=== PATIENT | female | born 1995 | race Caucasian/White ===

== ENCOUNTER 2020-09-08 11:25 | Outpatient (REF) | payer OTHER, SELFPAY ==
[2020-09-08 14:46] LABS: HCG Quantitative < 2 mIU/mL
== END 2020-09-08 11:26 | disposition home or self-care (01) ==
LOC: HO.LAB 11:25
PROVIDERS: Visit Provider Advanced Practice Midwife
DX: O20.0 Threatened abortion (principal)
CPT/HCPCS: 84702; 86850; 86900; 86901

== ENCOUNTER → 2020-09-14 14:45 | Outpatient (BNVA) | payer OTHER, SELFPAY | PROVIDERS: Visit Provider Advanced Practice Midwife | DX: Z76.89 Persons encountering health services in other specified circumstances (principal) ==

== ENCOUNTER 2021-06-13 14:22 | Outpatient (REF) | payer OTHER, SELFPAY ==
[2021-06-13 15:47] LABS: Hematocrit 43.4 % (37-47); Hemoglobin 14.6 g/dl (12.0-16.0); Mean Corpuscular HGB Conc 33.6 g/dl (31.0-35.0); Mean Corpuscular Hemoglobin 30.7 pg (27.0-33.0); Mean Corpuscular Volume 91.4 fL (80-98); Mean Platelet Volume 10.4 fL (9.4-12.3); Platelet Count 223 X10*3/uL (160-400); Red Blood Count 4.75 X10*6/uL (4.20-5.50); Red Cell Distribution Width 11.6 % (11.0-16.0); White Blood Count 4.9 X10*3/uL (4.8-10.8)
[2021-06-13 16:36] LABS: HCG Quantitative < 2 mIU/mL; TSH reflex Free T4 1.32 uIU/mL (0.32-4.0)
[2021-06-14 00:58] LABS: CT PCR NOT DETECTED (Not Detect.); NG PCR NOT DETECTED (Not Detect.)
[2021-06-14 07:57] LABS: Lutenizing Hormone 5.7 mIU/mL; Prolactin 10.3 ng/mL
== END 2021-06-13 14:23 | disposition home or self-care (01) ==
LOC: HO.LAB 14:22
PROVIDERS: PCP Internal Medicine; Referring Provider Internal Medicine; Visit Provider Obstetrics & Gynecology
DX: Z01.411 Encounter for gynecological examination (general) (routine) with abnormal findings (principal); Z11.3 Encounter for screening for infections with a predominantly sexual mode of transmission; N92.6 Irregular menstruation, unspecified; N93.9 Abnormal uterine and vaginal bleeding, unspecified
CPT/HCPCS: 36415; 83001; 83002; 84146; 84443; 84702; 85027; 87491; 87591

== ENCOUNTER 2021-06-27 15:33 | Outpatient (REF) | payer OTHER, SELFPAY ==
--- NOTE | ~2021-06-27 | US_ITS ---
EXAMINATION: US PELVIS AND TRANSVAGINAL CLINICAL INFORMATION: Abnormal bleeding. LMP 05/27/2021. COMPARISON: None. TECHNIQUE: Ultrasound of the pelvis is performed using both transabdominal and transvaginal transducers along with Doppler. Transvaginal imaging is performed due to inadequate visualization transabdominally. FINDINGS: Uterus: The uterus is anteverted and measures 9.5 x 5.6 x 5.8 cm. Nabothian cysts within the cervix. The double wall endometrial thickness is 1.8 mm. The uterus is smooth in contour and has normal myometrial echogenicity. No visible fibroid. Adnexa: Both ovaries are visualized. There is normal color flow to the adnexa. There is no ovarian torsion. There is no pelvic ascites or fluid collection. There are bilateral ovarian follicles. Right ovary measures 2.7 x 1.6 x 1.4 cm, for a volume of 3.2 mL. Left ovary measures 2.6 x 1.9 x 2.1 cm, for a volume of 5.4 mm. US/US pelvic and transvaginal IMPRESSION: Sonographically unremarkable uterus and endometrium. Sonographically unremarkable right and left ovary with bilateral ovarian follicles.
== END 2021-06-27 15:34 | disposition home or self-care (01) ==
LOC: HO.US 15:33
PROVIDERS: Visit Provider Obstetrics & Gynecology
DX: N93.9 Abnormal uterine and vaginal bleeding, unspecified (principal); N92.6 Irregular menstruation, unspecified
CPT/HCPCS: 76830; 76856

== ENCOUNTER → 2021-07-11 14:09 | Outpatient (BNVA) | payer OTHER, SELFPAY | PROVIDERS: Visit Provider Advanced Practice Midwife ==

== ENCOUNTER 2023-10-16 07:38 | Outpatient (AMB) | payer OTHER, SELFPAY ==
--- NOTE | 2023-10-16 07:41 | A.OFFVIS_ITS ---
Intake Vital Signs 10/16/23 07:43 Height 5 ft 3 in Weight 167 lb BMI 29.6 BP 120/80 Intake Visit Reasons: Annual Intake Note: No concerns Server Administrator Required: No Information Interpreted: non-clinical & clinical Advanced Solutions Architect: Advanced Solutions Architect Present (Rena HOLLEY) Accompanied by: Self / Same As Patient Allergies No Known Allergies Allergy (Verified 10/16/23 07:44) Is last menstrual period known: Yes Last menstrual period: 09/17/23 HPI HPI Comments History of Present Illness Details Presenting for annual exam. No complaints. Last Pap was negative in 05/01 [facility] Medical History Hodgkin lymphoma Family History Maternal Grandmother No problems noted. 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 Sexual orientation: Straight/Heterosexual Gender identity: Female Female Reproductive History Menstrual Age of Menarche: 11 Date of last menstrual period: 09/17/23 control method: none Total pregnancies: 1 Full term: 1 Number of Living Children: 1 Date of last pap smear: 05/28/20 Review of Systems Const All systems reviewed & are unremarkable except as noted in HPI and below Card Reports as per HPI Resp Reports as per HPI GI Reports as per HPI and Reports no additional complaints Reports as per HPI Physical Exam Vital Signs: BMI result Body Mass Index 29.6 Const General: cooperative, healthy appearing and comfortable Chest Chest palpation & inspection: normal inspection of the chest and normal palpa tion of entire chest wall Breast/axilla inspection: normal inspection of the breasts and normal inspection of the axillae Breast/axilla palpation: normal palpation of the breasts, normal palpation of the axillae and no axillary lymphadenopathy Resp Effort & Inspection: normal respiratory effort Auscultation: clear to auscultation bilaterally Percussion: percussion normal Cardio Palpation: normal PMI Rate: regular rate Rhythm: regular rhythm Heart sounds: no murmurs and no rubs Peripheral pulses: Peripheral pulses 2+ throughout GI Inspection: Yes normal to inspection Palpation (GI): Soft to palpation, nontender, no guarding, not rigid and No hepatosplenomegaly present Percussion: Yes normal to percussion Auscultation: normal bowel sounds Rectal Exam - Female: deferred General: Yes bladder normal to palpation External Female Exam: No lesion Speculum Exam - Vagina: normal appearance of the vagina, normal palpation, normal vaginal discharge and not erythematous Speculum Exam - Cervix: normal appearance of the cervix and normal palpation Bimanual exam- vagina & uterus: normal bimanual exam, normal palpation, uterine size normal, bladder normal to palpation, consistency normal and normal palpation Bimanual Exam- Adnexa, other: normal adnexae, no masses and no tenderness Assessment & Plan Assessment & Plan (1) Well woman exam: Code(s): Z01.419 - Encounter for gynecological examination (general) (routine) without abnormal findings Plan: Cotesting done. Counseled the patient about the recommended dietary allowance of 1000 mg of Calcium & 600 IU of vitamin D. The patient was instructed to perform monthly self-breast exams and to schedule an annual exam in a year; All questions answered and the patient verbalized understanding. Instructed the patient to schedule annual exam in a year Coding Level of Care Code Est Pt Prev Care 18-39y(24499) Diagnoses Well woman exam Z01.419
[2023-10-16 07:43] VITALS: BP 120/80; BMI 29.6
== END 2023-10-16 07:56 | disposition home or self-care (01) ==
LOC: HO.HWS 07:38
PROVIDERS: Visit Provider Obstetrics & Gynecology
DX: Z01.419 Encounter for gynecological examination (general) (routine) without abnormal findings (principal)
CPT/HCPCS: 99395

== ENCOUNTER 2023-10-16 07:38 | Outpatient (REF) | payer OTHER, SELFPAY ==
[2023-10-20 04:33] LABS: HPV mRNA E6/E7 rflx Not Detected (Not Detected)
== END 2023-10-16 07:39 | disposition home or self-care (01) ==
LOC: HO.LNP 07:38
PROVIDERS: Visit Provider Obstetrics & Gynecology
DX: Z01.419 Encounter for gynecological examination (general) (routine) without abnormal findings (principal); Z11.51 Encounter for screening for human papillomavirus (HPV)
CPT/HCPCS: 87624; 88142

== ENCOUNTER 2025-01-24 16:58 | Emergency (ER) | payer BC, SELFPAY ==
[2025-01-24 17:14] VITALS: BP 129/75; PULSE 73; RESP 18; TEMP 36.3; O2SAT 100; BMI 28.3
--- NOTE | 2025-01-24 17:16 | ED.GENADULT ---
HPI - General Adult General Chief complaint: Wound/Laceration Stated complaint: laceration to r middle finger knuckle Time Seen by Provider: 01/24/25 17:50 Source: patient and RN notes reviewed Mode of arrival: ambulatory Limitations: no limitations History of Present Illness ED Provider: Rebekah Carias PA-C HPI narrative: This is a 29-year-old female who presents emergency department with complaints of laceration to right hand after trying to put together a grill with her friend. This injury occurred today. Unsure when her last tetanus shot was. No numbness, tingling, or weakness. She is right-hand dominant. No other complaints or concerns at this time. MD complaint: Right hand laceration Onset (ago): hour(s) Location: upper extremity Radiation: non-radiation Severity: moderate Quality: aching Pain Consistency: constant Relieving factors: none Exacerbating factors: none Associated symptoms: denies other symptoms Treatments prior to arrival: none Related Data Home Medications ?Medication ?Instructions ?Recorded ?Confirmed No Known Home Meds 10/16/23 10/16/23 Allergies Allergy/AdvReac Type Severity Reaction Status Date / Time No Known Allergies Allergy Verified 01/24/25 17:15 Review of Systems Review of Systems: Yes all other systems are reviewed and are negative [facility], [facility] Past Medical History Medical History Hodgkin lymphoma Family History Family History Maternal Grandmother No problems noted. 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 No acute distress. HEENT: Normal inspection CVS: Normal heart rate and rhythm. Pulses normal. Respiratory: No respiratory distress Skin: right hand, dorsal aspect just distal to the distal MCP, there is a 2 cm partial-thickness laceration, v-shaped, no active bleeding or discharge. Full ROM of the digit. capillary refill less than 2 seconds. Extremities: Full ROM of the digit Neuro: Oriented X 3. No motor deficit. No sensory deficit. Course Course Course Narrative: RME performed by Alona Alcantara PA-C. Patient is a 29 year old assigned female at presenting to the emergency department with a right hand laceration. Patient states she got a right hand laceration while attempting to put together a brand new grill. Detailed physical exam and review of systems are deferred to the primary health care nurse. Patient placed back in the waiting room pending room availability. Medications Administered Discontinued Medications Generic Name Dose Route Start Last Admin Trade Name Freq PRN Reason Stop Dose Admin Bacitracin 1 appl 01/24/25 18:41 01/24/25 18:44 Bacitracin Oint 0.9 Gm Packet TOPICAL 01/24/25 18:42 1 appl ONCE ONE Administration Protocol Diphtheria/Tetanus/Acell Pertussis 0.5 ml 01/24/25 17:16 01/24/25 18:31 Diphth,Pertus(Acell),Tet Adult 0.5 Ml Syringe IM 01/24/25 17:17 0.5 ml .ONCE ONE Administration Lidocaine HCl 10 ml 01/24/25 17:52 01/24/25 17:58 Lidocaine Hcl 1 % Mpf 5 Ml Vial SUBCUT 01/24/25 17:53 10 ml ONCE ONE Administration Procedures Laceration Laceration 1: Side (If applicable): right Size (cm): 2 Description: linear Depth: simple, single layer Local Anesthetic: lidocaine 1% Amount of anesthesia used (mL): 3 Pre-repair: wound explored, irrigated extensively and deep structures intact Skin layer closed with: nylon Size (cm): 5-0 Number of sutures: 4 Technique: simple, interrupted Medical Decision Making Medical Decision Making MDM Narrative: This is a 29-year-old female who presents emergency department with concerns for laceration to right middle finger. On arrival, vital signs within normal limits. patient has a partial-thickness laceration noted just distal to the MCP of the 3rd digit on the right hand. Requiring suture repair. Please see procedure note for detail. updated tetanus shot in the department. Given strict return precautions as well as wound care instructions. She understands agrees with plan. Patient stable for discharge Differential Diagnosis Differential Diagnoses: The differential diagnosis associated with the presentation includes laceration, contusion, foreign body, puncture wound Discharge Plan Discharge Clinical Impression: Laceration Patient Disposition: Home, Self-Care Instructions: Care For Your Stitches (ED) Additional Instructions: You were seen in the emergency department due to a laceration to your right middle finger. Please keep wound clean and dry. Please have sutures removed in 7-10 days. You may return here or follow-up with the primary care physician or urgent care. Do not submerge wound. Do not pick at wound. We updated your tetanus shot in the department today. Please take ibuprofen and or Tylenol as needed for pain and symptoms. Watch for any signs of infection including but not limited to increased redness, swelling, fevers or chills. If any of these occur, please seek emergent care. Prescriptions: No Action No Known Home Meds Interventions: ED Discharge Assessment Last Done: 01/24/25 19:07 Discharge Date/Time: 01/24/25 19:07 Print Language: Barbadian
[2025-01-24] MEDS: Lidocaine HCl 1 % MPF 5 ML VIAL 10 ML SUBCUT (17:58)
[2025-01-24] MEDS: Diphth,Pertus(ACell),Tet Adult 0.5 ML SYRINGE IM (18:31)
[2025-01-24] MEDS: Bacitracin Oint 0.9 GM PACKET 1 APPL TOPICAL (18:44)
[2025-01-24 18:53] VITALS: BP 128/76; PULSE 72; RESP 18; TEMP 36.5; O2SAT 98
[2025-01-24 19:07] VITALS: BP 128/76; PULSE 72; RESP 18; TEMP 36.5; O2SAT 98
== END 2025-01-24 19:07 | disposition home or self-care (01) ==
PROVIDERS: Emergency Provider Emergency Medicine
DX: S61.212A Laceration without foreign body of right middle finger without damage to nail, initial encounter (principal); W26.8XXA Contact with other sharp object(s), not elsewhere classified, initial encounter; Y93.89 Activity, other specified; Y92.9 Unspecified place or not applicable; Y99.9 Unspecified external cause status; Z23 Encounter for immunization
CPT/HCPCS: 12001; 90471; 90715; 99284; J2003

== ENCOUNTER 2025-11-02 08:44 | Outpatient (REF) | payer BC, SELFPAY ==
[2025-11-02 23:18] LABS: CT PCR NOT DETECTED (Not Detect.); NG PCR NOT DETECTED (Not Detect.)
== END 2025-11-02 08:45 | disposition home or self-care (01) ==
LOC: HO.LNP 08:44
PROVIDERS: Visit Provider Obstetrics & Gynecology
DX: Z01.419 Encounter for gynecological examination (general) (routine) without abnormal findings (principal); N93.0 Postcoital and contact bleeding; Z20.2 Contact with and (suspected) exposure to infections with a predominantly sexual mode of transmission
CPT/HCPCS: 87491; 87591; 87626; 88175

== ENCOUNTER 2025-11-02 08:44 | Outpatient (AMB) | payer BC, SELFPAY ==
[2025-11-02 08:57] VITALS: BP 110/80; BMI 29.2
--- NOTE | 2025-11-02 08:57 | A.OFFVIS_ITS ---
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 Complaining of postcoital bleeding over the last few months no associated symptoms Last Pap/HPV was ascus HPV negative in 11/03 [facility] Medical History Hodgkin lymphoma Family History Maternal Grandmother No problems noted. 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 [employer] Sexual orientation: Straight/Heterosexual Gender identity: Female Female Reproductive History Menstrual Age of Menarche: 11 Date of last menstrual period: 10/08/25 Review of Systems Const All systems reviewed & are unremarkable except as noted in HPI and below Card Reports as per HPI Resp Reports as per HPI GI Reports as per HPI and Reports no additional complaints Reports as per HPI Physical Exam Vital Signs: Last Vital Signs BP 110/80 11/02/25 08:57 BMI result Body Mass Index 29.2 Const General: cooperative, healthy appearing and comfortable Chest Chest palpation & inspection: normal inspection of the chest and normal palpation of entire chest wall Breast/axilla inspection: normal inspection of the breasts and normal inspection of the axillae Breast/axilla palpation: normal palpation of the breasts, normal palpation of the axillae and no axillary lymphadenopathy Resp Effort & Inspection: normal respiratory effort Auscultation: clear to auscultation bilaterally Percussion: percussion normal Cardio Palpation: normal PMI Rate: regular rate Rhythm: regular rhythm Heart sounds: no murmurs and no rubs Peripheral pulses: Peripheral pulses 2+ throughout GI Inspection: Yes normal to inspection Palpation (GI): Soft to palpation, nontender, no guarding, not rigid and No hepatosplenomegaly present Percussion: Yes normal to percussion Auscultation: normal bowel sounds Rectal Exam - Female: deferred General: Yes bladder normal to palpation External Female Exam: No lesion Speculum Exam - Vagina: normal appearance of the vagina, normal palpation, normal vaginal discharge and not erythematous Speculum Exam - Cervix: normal appearance of the cervix and normal palpation Bimanual exam- vagina & uterus: normal bimanual exam, normal palpation, uterine size normal, bladder normal to palpation, consistency normal and normal palpation Bimanual Exam- Adnexa, other: normal adnexae, no masses and no tenderness Assessment & Plan Assessment & Plan (1) Well woman exam: Code(s): Z01.419 - Encounter for gynecological examination (general) (routine) without abnormal findings Category: Medical Plan: Cotesting done. Counseled the patient about the recommended dietary allowance of 1000 mg of Calcium & 600 IU of vitamin D. The patient was instructed to perform monthly self-breast exams and to schedule an annual exam in a year; All questions answered and the patient verbalized understanding. Instructed the patient to schedule annual exam in a year (2) PCB (post coital bleeding): Code(s): N93.0 - Postcoital and contact bleeding Category: Medical Plan: Co testing done GC/CT taken pelvic ultrasound ordered. Instructions given the patient to schedule a 2 week follow-up appointment. All questions answered, the patient verbalized understanding. Orders: Orders US pelvic and transvaginal Today N93.0 - Postcoital and contact bleeding Coding Level of Care Code Est Pt Level 3 (11144) Est Pt Prev Care 18-39y(52119) Diagnoses Well woman exam Z01.419 PCB (post coital bleeding) N93.0
== END 2025-11-02 09:21 | disposition home or self-care (01) ==
LOC: HO.HWS 08:45
PROVIDERS: Visit Provider Obstetrics & Gynecology
DX: Z01.419 Encounter for gynecological examination (general) (routine) without abnormal findings (principal); N93.0 Postcoital and contact bleeding
CPT/HCPCS: 99213; 99395; 99459